=== PATIENT | male | born 1965 | race Caucasian/White ===

== ENCOUNTER 2017-07-31 10:24 | Emergency (ER) | payer OTHER ==
[2017-07-31] MEDS: cloNIDine HCL 0.1 MG TABLET PO (11:05)
== END 2017-07-31 11:17 | disposition home or self-care (01) ==
LOC: ER 10:24
DX: F11.23 Opioid dependence with withdrawal (principal)
CPT/HCPCS: 99283

== ENCOUNTER 2017-07-31 13:37 | Emergency (ER) | payer OTHER | END 2017-07-31 15:20 | disposition home or self-care (01) | LOC: ER 13:37 | DX: F11.23 Opioid dependence with withdrawal (principal); G47.00 Insomnia, unspecified; F12.10 Cannabis abuse, uncomplicated; F17.210 Nicotine dependence, cigarettes, uncomplicated | CPT/HCPCS: 99283 ==